=== PATIENT | female | born 1945 | race African-American/Black ===

== ENCOUNTER 2016-10-29 07:35 | Inpatient (IN) | payer OTHER, BC ==
[2016-10-24 13:20] VITALS: BMI 39.8
--- NOTE | 2016-10-29 07:34 | HP ---
Admitting History and Physical - Admission Chief Complaint: Left knee OA x years History of Present Illness: 71 year old female with a longstanding history of left knee osteoarthritis. Patient complains of pain, limited ROM and difficulty ambulating. Patient has failed conservative treatment including PO medication, activity modification and injections. At this point patient would like to proceed with a left total knee arthroplasty. History Source: Patient - Past Medical History Pulmonary: Yes: Asthma ...: No Musculoskeletal: Yes: Osteoarthritis (left knee) ENT: Yes: Allergic Rhinitis - Past Surgical History Additional Past Surgical History: see written H&P - Advance Directives Advance Directives: Yes: Living Will, Health Care Proxy - Smoking History Smoking history: Never smoked Have you smoked in the past 12 months: No - Alcohol/Substance Use Hx Alcohol Use: No Home Medications - Allergies Allergies/Adverse Reactions: Allergies Allergy/AdvReac Type Severity Reaction Status Date / Time No Known Allergies Allergy Verified 10/24/16 13:22 - Home Medications Home Medications: Ambulatory Orders Albuterol Sulfate [Proair Respiclick] 90 mcg IH Q4H PRN 10/24/16 Aspirin [Ecotrin] 81 mg PO DAILY 10/24/16 Fluticasone Propionate [Flonase Allergy Relief] 9.9 ml NS DAILY 10/24/16 Fluticasone Propionate [Flovent Diskus] 100 mcg IH BID 10/24/16 Furosemide [Lasix] 80 mg PO DAILY 10/24/16 Ipratropium/Albuterol Sulfate [Iprat-Albut 0.5-3(2.5) mg/3 ml] 3 ml IH QID PRN 10/24/16 Meloxicam [Mobic (Nf) -] 15 mg PO PRN PRN 10/24/16 Review of Systems - Review of Systems Musculoskeletal: reports: Crepitus (left knee), Decreased ROM, Joint Pain, Joint Swelling Physical Examination Constitutional: Yes: Well Nourished, No Distress Eyes: Yes: Conjunctiva Clear HENT: Yes: Atraumatic, Normocephalic Neck: Yes: Supple Cardiovascular: Yes: Regular Rate and Rhythm Respiratory: Yes: Regular Gastrointestinal: Yes: Soft ...Rectal Exam: Yes: Deferred Musculoskeletal: Yes: Joint Stiffness (left knee), Joint Swelling Assessment/Plan 71 year old female with longstanding history of left knee osteoarthritis. Patient has failed conservative treatment. Proceed with a left total knee arthroplasty.
[2016-10-29] MEDS ORDERED: ROPIVICAINE 0.2%/MORPH PF/KETOROLAC - 51ML DISP.SYRINGE IA ONE ×2 (07:42→11:16)
[2016-10-29] MEDS ORDERED: TRANEXAMIC ACID 1000 MG/10 ML VIAL IVPUSH ONE (07:42)
[2016-10-29] MEDS ORDERED: CEFAZOLIN 2 GM in DEXTROSE 5%-WATER - 50 ML IVPB ONE (07:42)
[2016-10-29] MEDS ORDERED: ceFAZolin SODIUM 1 GM VIAL ONE (09:28)
[2016-10-29] MEDS ORDERED: VANCOMYCIN 1,000 MG VIAL (RESTRICTED TO ID ONLY) ONE (09:28)
[2016-10-29] MEDS ORDERED: TRANEXAMIC ACID 1000 MG/10 ML VIAL ONE (09:28)
[2016-10-29] MEDS: CELECOXIB 200 MG CAPSULE PO ONE (09:30)
[2016-10-29] MEDS: GABAPENTIN 300 MG CAPSULE (FP) PO ONE (09:30)
[2016-10-29] MEDS: oxyCODONE HCL 10 MG SUSTAINED ACTING TABLET PO ONE (09:30)
[2016-10-29] MEDS ORDERED: DEXAMETHASONE SOD PHOSPHATE/PF 10 MG/ML SDV ONE (10:18)
[2016-10-29] MEDS ORDERED: BUPIVACAINE HCL/PF (5 MG/ML) 30 ML VIAL IJ ONE (10:19)
[2016-10-29] MEDS ORDERED: MIDAZOLAM HCL 2 MG/2 ML SINGLE DOSE VIAL ONE ×2 (10:19→11:42)
[2016-10-29] MEDS ORDERED: PROPOFOL 20 ML ONE ×3 (11:31)
[2016-10-29] MEDS ORDERED: BUPIVACAINE HCL/PF 0.5% (5MG/ML) 10 ML VIAL ONE (11:32)
[2016-10-29] MEDS ORDERED: ePHEDrine SULFATE 50 MG/1 ML AMPULE ONE (12:13)
--- NOTE | 2016-10-29 14:53 | OP ---
Operative Note - Note: Operative Date: 10/29/16 Pre-Operative Diagnosis: left knee DJD Operation: Left TKA Post-Operative Diagnosis: Same as Pre-op Surgeon: Marito Rhodes Manager Rn Case: Abel Downs Anesthesia: Spinal Estimated Blood Loss (mls): 200
[2016-10-29] MEDS ORDERED: MAG HYDROX/AL HYDROX/SIMETH 30 ML UNIT-DOSE CUP PO PRN (14:56)
[2016-10-29] MEDS ORDERED: ONDANSETRON 4 MG/2 ML VIAL IVPB PRN (14:56)
[2016-10-29] MEDS ORDERED: MAGNESIUM HYDROX 2400MG/30ML ORAL SUSPENSION 30 ML CUP PO PRN (14:56)
[2016-10-29] MEDS ORDERED: ALBUTEROL SO4 6.7 GM HFA INHALER IH PRN (15:00)
[2016-10-29] MEDS ORDERED: ALBUTEROL SO4 2.5/IPRATROPIUM 0.5 INH SOL 3 ML VIAL.NEB. NEB PRN (15:00)
[2016-10-29] MEDS ORDERED: LACTATED RINGERS SOLUTION 1,000 ML IV SCH (15:00)
--- NOTE | 2016-10-29 15:31 | SURG ---
Surgery Real Estate Job Titles Note Real Estate Job Titles: Abel Downs PA-C Date of Service: 10/29/16 Diagnosis: left knee DJD Procedure: left total knee replacement I was present for the entirety of the operative procedure. For further detail, please refer to operative report. Visit type - Case Type Case Type: Scheduled Admission - New patient This patient is new to me today: Yes Date on this admission: 10/29/16
[2016-10-29] MEDS ORDERED: ROPIVACAINE 0.2% 400ML 400 ML ML NR ONE (15:34)
[2016-10-29] MEDS ORDERED: oxyCODONE HCL 5 MG TABLET PO PRN (15:34)
[2016-10-29] MEDS: ACETAMINOPHEN 325 MG TABLET (FP) PO SCH ×2 (15:40→22:00)
[2016-10-29] MEDS: traMADol HCL 50 MG TABLET PO SCH ×2 (15:40→21:30)
[2016-10-29] MEDS: KETOROLAC TROMETHAMINE 30 MG/1 ML VIAL IVPUSH SCH ×2 (15:42→22:00)
[2016-10-29] MEDS: oxyCODONE HCL 5 MG TABLET PO PRN (16:18)
[2016-10-29] MEDS ORDERED: IPRATROPIUM BR 0.02% 0.5 MG/2.5 ML VIAL.NEB. NEB ONE (16:29)
[2016-10-29] MEDS ORDERED: ALBUTEROL SO4 0.083% IH SOL 2.5 MG/3 ML VIAL.NEB. NEB ONE (16:30)
[2016-10-29] MEDS ORDERED: ALBUTEROL SO4 2.5/IPRATROPIUM 0.5 INH SOL 3 ML VIAL.NEB. NEB ONE (16:32)
[2016-10-29] MEDS ORDERED: CEFAZOLIN 2 GM in DEXTROSE 5%-WATER - 50 ML IVPB SCH (18:00)
[2016-10-29] MEDS: CEFAZOLIN 2 GM/D5W 50 ML IVPB SCH (18:13)
[2016-10-29] MEDS ORDERED: PT OWN MED DRAWER 7, Y5N ONE ×2 (19:00→21:10)
--- NOTE | 2016-10-29 21:03 | SPEC ---
DATE OF OPERATION: 10/29/2016 PREOPERATIVE DIAGNOSIS: Left knee osteoarthritis. POSTOPERATIVE DIAGNOSIS: Left knee osteoarthritis. PROCEDURE: Left total knee arthroplasty. ATTENDING: Ranjan Doll MD SELF CONTAINED BEHAVIOR UNIT TEACHER: MARLY Sullivan ANESTHESIA: Spinal plus sedation. ESTIMATED BLOOD LOSS: 200 mL. COMPLICATIONS: None. SPECIMENS: Resected bone was sent for pathology analysis. DISPOSITION: The patient was transferred to the PACU in stable condition. IMPLANTS USED: Renu Triathlon size 5 femoral component, size 4 tibial component, 11-mm posterior stabilized polyethylene component, 29-mm patellar component. INDICATIONS: This is a 71-year-old female who presented to the office with longstanding severe bilateral knee pain. She had been treated by our practice nonoperatively for quite some time with medications, injections, and physical therapy but continued to have severe pain that was refractory to conservative measures. She was seen and examined by Dr. Doll and indicated for a total knee arthroplasty. The left knee was the more painful of the 2 so we elected to proceed with that one first. The risks, benefits and alternatives to the procedure were explained to the patient in great detail and she elected to proceed with the surgery. On the day of surgery, the patient was taken to the operating room and placed on the OR table. Spinal anesthesia was administered by the anesthesiologist. The patient was then positioned supine on the table and all bony prominences were padded. A nonsterile tourniquet was placed on the proximal thigh. The knee was then prepped and draped in the usual sterile fashion and intravenous antibiotics were given for infection prophylaxis. A surgical time-out was then performed with the team, and the patients identity, procedure, side, availability of implants, and the administration of antibiotics was confirmed. The leg was then elevated and exsanguinated, and the tourniquet was inflated. With the knee flexed, a midline incision was made and carried down through the subcutaneous fat to the underlying retinaculum. A medial parapatellar arthrotomy was performed. This was followed by a subperiosteal dissection of the tissue off the proximal, medial tibia. A portion of fat pad was removed from under the patellar tendon, and a small portion of fat was excised off the distal supracondylar femur. The knee was then flexed further and the anterior horn of the lateral meniscus was released from the midline. Next, the anterior and posterior cruciate ligaments were transected. Osteophytes were removed from both the femur and tibia. Grade 4 changes were noted diffusely throughout the knee. Hohmann retractors were then placed around the distal femur. The starting drill was used to enter the intramedullary canal. The starting point had been chosen by checking the radiographs and anatomy. Proper alignment and intramedullary placement was then confirmed by placing the long narrow willis into the femur. Next, the distal femoral cutting guide was adjusted to 6 degrees of valgus and pinned to the femur. The bone resection was assessed using an adalgisa-wing. An approximately 10mm distal cut was made and the cut pieces measured. Once this was complete, the sizing guide was used to determine which size femoral component should be used. Next, the appropriately sized 4-in-1 cutting block was then placed at the correct amount of external rotation and the adalgisa wing was used to assure that there would be no notching of the anterior cortex of the femur. Once this was done, Hohmann retractors were used to protect the medial and lateral collateral ligaments, and all appropriate bone cuts were made. Attention was then turned to the tibia. Hohmann retractors were used to translate the tibia anteriorly and protect the collateral ligaments. The medial and lateral menisci were removed. The extramedullary tibial alignment guide was then placed and adjusted for rotation, varus/valgus, and slope. The height of the cutting block was adjusted to the level of the desired bone resection and then pinned in place. The proximal tibia was then cut with a saw and the bone was removed and measured. Once this was completed, trial components were placed and the knee was taken through a full range of motion. Soft tissue balance was assessed in both flexion and extension and found to be appropriate. The knee was stable throughout the full range of motion. The knee was then put into extension and the patella everted. The synovium around the patella was circumscribed with electrocautery. A caliper was used to measure the patellar thickness and a saw was then used to resect the patella at the chondro-osseous junction. The cut surface was then sized and drilled for the appropriate patellar button, with care taken to medialize it. A trial patella was then placed and the knee was again taken through a full range of motion. The knee was found to have both good balance and good patellar tracking. All of the components were removed except the tibial base plate. The appropriate instrumentation was used to drill and punch the proximal tibia for the keel of the final component. All bony surfaces were then cleaned with pulsatile lavage and dried. Bone cement was then prepared on the back table, and final components were cemented in place in the usual fashion. Extruded cement was removed. The polyethylene trial was placed, the knee was put into extension, and axial pressure was applied for compression while the cement hardened. The patellar button was similarly cemented into place. Once the cement had hardened, the knee was taken through a full range of motion to assess stability, balance, and patellar tracking. This was found to be optimal and the trial polyethylene was exchanged for the appropriately sized real implant. The wound was then thoroughly irrigated with normal saline. No. 1 Polysorb and 0 VLoc 180 barbed sutures were used to close the arthrotomy. No. 1 Polysorb and 2-0 Polysorb sutures were used in the subcutaneous tissues. The skin was closed using both 3-0 VLoc 90 suture in a running subcuticular fashion and SwiftSet skin adhesive. Once this was completed a sterile Aquacel dressing and compressive Cameron-wrap was applied. The tourniquet was then deflated and the patient was awakened and taken to the PACU in stable condition. ADDENDUM: After implant were placed, a 3-minute dilute Betadine lavage was performed as per the [facility] protocol. After this, the thoroughly irrigated again with normal saline via pulsatile lavage and wound closure was begun. RANJAN DOLL M.D. [id number]
[2016-10-29] MEDS ORDERED: MOMETASONE FUROATE 220 MCG/IH INHALER IH SCH (22:00)
[2016-10-29] MEDS ORDERED: CELECOXIB 200 MG CAPSULE PO ONE (22:00)
[2016-10-29] MEDS: SENNOSIDES/DOCUSATE COMBO (SENNA PLUS) TABLET (UD) PO SCH (23:09)
[2016-10-29] MEDS: FERROUS SO4 325 MG TABLET (FP) PO SCH (23:09)
[2016-10-29] MEDS: GABAPENTIN 300 MG CAPSULE (FP) PO SCH (23:10)
[2016-10-29] MEDS: oxyCODONE HCL 10 MG SUSTAINED ACTING TABLET PO SCH (23:15)
[2016-10-29] MEDS: ASCORBIC ACID 500 MG TABLET (FP) PO SCH (23:15)
[2016-10-30] MEDS: traMADol HCL 50 MG TABLET PO SCH ×4 (02:49→22:28)
[2016-10-30] MEDS: KETOROLAC TROMETHAMINE 30 MG/1 ML VIAL IVPUSH SCH ×2 (02:50→09:36)
[2016-10-30] MEDS: CEFAZOLIN 2 GM/D5W 50 ML IVPB SCH (02:50)
[2016-10-30] MEDS: ACETAMINOPHEN 325 MG TABLET (FP) PO SCH ×4 (02:51→22:29)
[2016-10-30 08:35] LABS: MCH 26.1 pg (25.7-33.7); MCHC 32.8 g/dl (32.0-36.0); MEAN CELL VOLUME 79.6 fl (80-96); MEAN PLT VOLUME 11.2 fl (7.5-11.1); PLATELET COUNT 187 K/MM3 (134-434); RDW 12.9 % (11.6-15.6); WHITE BLOOD COUNT 9.2 K/mm3 (4.0-10.0)
[2016-10-30] MEDS: oxyCODONE HCL 10 MG SUSTAINED ACTING TABLET PO ONE (08:48)
[2016-10-30] MEDS: GABAPENTIN 300 MG CAPSULE (FP) PO ONE (08:48)
[2016-10-30] MEDS: CELECOXIB 200 MG CAPSULE PO ONE (08:48)
[2016-10-30 08:51] LABS: ANION GAP 9 (8-16); CALCIUM 9.5 mg/dl (8.4-10.2); CO2 24 mmol/L (22-28); CREATININE 0.9 mg/dl (0.6-1.3); GLUCOSE,RANDOM 113 mg/dl (74-106)
[2016-10-30] MEDS ORDERED: INFLUENZA VACCINE 45 MCG/0.5 ML (MDV 16-17) IM ONE (09:00)
[2016-10-30] MEDS ORDERED: PT OWN MED DRAWER 7, Y5N ONE ×3 (09:06→22:35)
[2016-10-30] MEDS: FLUTICASONE PROP 0.05% 16 GM NASAL SPRAY NS SCH (09:40)
[2016-10-30] MEDS: GABAPENTIN 300 MG CAPSULE (FP) PO SCH ×2 (09:44→22:28)
[2016-10-30] MEDS: SENNOSIDES/DOCUSATE COMBO (SENNA PLUS) TABLET (UD) PO SCH ×2 (09:44→22:28)
[2016-10-30] MEDS: MULTIVITAMINS (DAILY MVI) TABLET (FP) PO SCH (09:45)
[2016-10-30] MEDS: PANTOPRAZOLE 40 MG TABLET (FP) PO SCH (09:45)
[2016-10-30] MEDS: APIXABAN 2.5 MG TABLET PO SCH ×2 (09:49→22:28)
[2016-10-30] MEDS: FERROUS SO4 325 MG TABLET (FP) PO SCH ×2 (09:50→22:28)
[2016-10-30] MEDS: oxyCODONE HCL 10 MG SUSTAINED ACTING TABLET PO SCH ×2 (09:51→22:28)
[2016-10-30] MEDS: ASCORBIC ACID 500 MG TABLET (FP) PO SCH ×2 (09:52→22:29)
[2016-10-30] MEDS ORDERED: FUROSEMIDE 40 MG TABLET (FP) PO SCH (10:00)
--- NOTE | 2016-10-30 10:20 | PN ---
Progress Note (short form) - Note Progress Note: 71F POD1 s/p left TKR under spinal anesthetic with continuous adductor canal catheter and selective tibial block for post operative pain doing well. AVSS, patient states that pain is well controlled, and reports no anesthetic complications. Sensory and motor function intact both lower extremities.
[2016-10-30] MEDS: FUROSEMIDE 40 MG TABLET (FP) PO SCH (14:35)
--- NOTE | 2016-10-30 21:23 | PN ---
Progress Note (short form) - Note Progress Note: Pt seen and examined. Comfortable. AVSS Selected Entries 10/30/16 10/30/16 14:20 20:42 Temperature 98.2 F Pulse Rate 61 Respiratory 16 Rate Blood Pressure 77 Mean O2 Sat by Pulse 93 L Oximetry (%) Laboratory Tests 10/30/16 10/30/16 07:00 07:00 WBC 9.2 Hgb 10.4 L Hct 31.7 L Plt Count 187 Sodium 136 Potassium 4.1 Chloride 103 Carbon Dioxide 24 Anion Gap 9 BUN 18 Creatinine 0.9 Random Glucose 113 H Calcium 9.5 Gen: NAD LLE: c/d/i, NVID A/P 71yo female POD#1 s/p L TKA 1. PT/OOB - WBAT LLE 2. D/C to SNF tomorrow
[2016-10-31] MEDS: ACETAMINOPHEN 325 MG TABLET (FP) PO SCH ×2 (04:00→09:25)
[2016-10-31] MEDS: traMADol HCL 50 MG TABLET PO SCH ×2 (04:15→09:24)
[2016-10-31 06:49] VITALS: BP 137/64; PULSE 98; TEMP 98
[2016-10-31] MEDS: oxyCODONE HCL 5 MG TABLET PO PRN (06:50)
[2016-10-31] MEDS: FUROSEMIDE 40 MG TABLET (FP) PO SCH (06:52)
--- NOTE | 2016-10-31 08:00 | PN ---
Progress Note (short form) - Note Progress Note: Pt seen and examined. Comfortable. AVSS LABS PENDING Gen: NAD LLE: c/d/i, NVID A/P 71yo female POD#2 s/p L TKA 1. PT/OOB - WBAT LLE 2. D/C to SNF today
--- NOTE | 2016-10-31 08:09 | DS ---
Physical Examination Vital Signs: Vital Signs Temperature 98.0 F 10/31/16 06:47 Pulse Rate 98 H 10/31/16 06:47 Respiratory Rate 18 10/31/16 06:47 Blood Pressure 137/64 10/31/16 06:47 O2 Sat by Pulse Oximetry (%) 98 10/31/16 06:47 Labs: CBC, BMP 10/30/16 07:00 10/30/16 07:00 Discharge Summary Reason For Visit: OSTEOARTHRITIS, LEFT KNEE Current Active Problems Osteoarthritis of left knee (Acute) Procedures: Principal: left total knee replacement Hospital Course: Admitted for elective surgery. Procedure performed without complications. Pt received postoperative antibiotic prophylaxis and DVT ppx. Ambulated with physical therapy. Stable for discharge home with outpatient followup. Condition: Stable - Instructions Diet, Activity, Other Instructions: Dr. Doll - Knee Replacement Instructions Keep the Aquacel dressing on until removed by Dr. Doll in 10-14 days - it is antibacterial and waterproof and you can shower with it on. DO NOT REMOVE AT [facility]UST[facility]ACILITY WITHOUT PERMISSION FROM DR. DOLL. Call the office for a follow-up appointment with Dr. Doll in 10-14 days. Take ELIQUIS twice daily for 35 days to prevent blood clots in your legs. Take one Pantoprazole 40mg daily for 6 weeks to protect against heartburn and ulcers. For pain: *Mild pain (1-3/10): Take 1 Tramadol tablet every 4 hours as needed. Moderate pain (4-6/10): Take 1 Tramadol tablet and 1 Percocet tablet every 4 hours as needed. Severe pain (7-10/10): Take 1 Tramadol tablet and 2 Percocet tablets every 4 hours as needed. Activity: You can put as much weight on the operative leg as you want. Right after you get home, there will be a physical therapist coming to your house to help you walk around and bend/straighten your knee. After your follow-up appointment, you will be sent for more intensive outpatient physical therapy which will include machines and equipment that the home therapist cannot bring to your house. Always use a walker or cane for balance and to prevent falls. Disposition: CUSTODIAL FACILITY - Home Medications Comprehensive Discharge Medication List: Ambulatory Orders Albuterol Sulfate [Proair Respiclick] 90 mcg IH Q4H PRN 10/24/16 Aspirin [Ecotrin] 81 mg PO DAILY 10/24/16 Fluticasone Propionate [Flonase Allergy Relief] 9.9 ml NS DAILY 10/24/16 Fluticasone Propionate [Flovent Diskus] 100 mcg IH BID 10/24/16 Furosemide [Lasix] 80 mg PO DAILY 10/24/16 Ipratropium/Albuterol Sulfate [Iprat-Albut 0.5-3(2.5) mg/3 ml] 3 ml IH QID PRN 10/24/16 Flonase Nasal 1 each PO DAILY 10/29/16 Acetaminophen [Tylenol .Regular Strength -] 650 mg PO Q6H tablet 10/31/16 Apixaban [Eliquis -] 2.5 mg PO BID tablet 10/31/16 Ascorbic Acid [Vitamin C -] 500 mg PO BID tablet 10/31/16 Multivitamins [Multivit ([facility])] 1 tab PO DAILY tab 10/31/16 Oxycodone HCl/Acetaminophen [Percocet 5-325 mg Tablet] 1 - 2 tab PO Q4H PRN #60 tablet MDD 10 10/31/16 Pantoprazole Sodium [Protonix -] 40 mg PO DAILY #40 tab 10/31/16 Sennosides/Docusate Sodium [Pericolace -] 1 tablet PO BID tablet 10/31/16 Tramadol HCl [Ultram -] 50 mg PO Q4H PRN #90 tablet MDD 6 10/31/16
[2016-10-31 08:43] LABS: MCH 25.7 pg (25.7-33.7); MCHC 31.8 g/dl (32.0-36.0); MEAN CELL VOLUME 80.8 fl (80-96); MEAN PLT VOLUME 11.7 fl (7.5-11.1); PLATELET COUNT 172 K/MM3 (134-434); RDW 13.2 % (11.6-15.6); WHITE BLOOD COUNT 8.7 K/mm3 (4.0-10.0)
[2016-10-31] MEDS: GABAPENTIN 300 MG CAPSULE (FP) PO SCH (09:24)
[2016-10-31] MEDS: APIXABAN 2.5 MG TABLET PO SCH (09:24)
[2016-10-31] MEDS: MULTIVITAMINS (DAILY MVI) TABLET (FP) PO SCH (09:24)
[2016-10-31] MEDS: SENNOSIDES/DOCUSATE COMBO (SENNA PLUS) TABLET (UD) PO SCH (09:24)
[2016-10-31] MEDS: PANTOPRAZOLE 40 MG TABLET (FP) PO SCH (09:24)
[2016-10-31] MEDS: FERROUS SO4 325 MG TABLET (FP) PO SCH (09:25)
[2016-10-31] MEDS: oxyCODONE HCL 10 MG SUSTAINED ACTING TABLET PO SCH (09:25)
[2016-10-31] MEDS: ASCORBIC ACID 500 MG TABLET (FP) PO SCH (09:25)
[2016-10-31] MEDS: FLUTICASONE PROP 0.05% 16 GM NASAL SPRAY NS SCH (09:27)
--- NOTE | 2016-11-01 12:22 | PATH ---
Surgical Pathology Report Patient Name: JEFFY KNOTT Med. Rec. #: [id number] /Age/Gender: 1945 (Age: 71) / F Account: [id number] Location: [facility] MED-SURG Taken: 10/29/2016 Received: 10/29/2016 Reported: 11/01/2016 Physicians: Marito Rhodes M.D. Specimen(s) Received LEFT KNEE BONES Clinical History Left knee osteoarthritis Final Diagnosis KNEE BONES, LEFT, TOTAL KNEE REPLACEMENT: DEGENERATIVE JOINT DISEASE. Electronically Signed Tyesha Lopez M.D. Gross Description Received in formalin labeled "left knee bones," is a 13.5 x 13.0 x 2.6 cm aggregate of multiple bansal, irregular portions of bone and soft tissue. The tibial plateau measures 8.0 x 5.4 x 1.5 cm. There are no areas of eburnation identified. The remaining articular surfaces are bansal-yellow and diffusely granular. The underlying trabecular bone is yellow and hard. Wire Stockkeeper sections are submitted in one cassette, following decalcification. /10/30/201610/30/2016
== END 2016-10-31 14:18 | DRG 470 ==
LOC: FM/S 07:35 → EDBD 08:00 → FM/S 17:14
PROVIDERS: ADMIT Student in an Organized Health Care Education/Training Program; ATTEND Student in an Organized Health Care Education/Training Program
PROC: 0SRD0J9 Replacement of Left Knee Joint with Synthetic Substitute, Cemented, Open Approach (ICD-10-PCS; principal; 2016-10-29 10:30)
DX: M17.12 Unilateral primary osteoarthritis, left knee (principal); J45.909 Unspecified asthma, uncomplicated; J30.9 Allergic rhinitis, unspecified; E66.8 Other obesity; Z68.39 Body mass index [BMI] 39.0-39.9, adult; Z71.3 Dietary counseling and surveillance
CPT/HCPCS: 36415; 73560-TC-LT; 80048; 85027; 88304-TC; 88311-TC; 94010; 94760; 97116-GP; 97162-GP; G0008; Q2037